=== PATIENT | male | born 1960 | race Caucasian/White ===

== ENCOUNTER 2017-09-13 10:01 | Emergency (ER) | payer MEDICARE, OTHER ==
--- NOTE | 2017-09-13 12:08 | XR ---
EXAMINATION TYPE: XR tibia fibula LT DATE OF EXAM: 09/13/2017 COMPARISON: NONE HISTORY: Pain TECHNIQUE: Two views are submitted. FINDINGS: The osseous structures are intact. The joint spaces are preserved. IMPRESSION: 1. No acute osseous abnormality.
--- NOTE | 2017-09-13 13:04 | US ---
EXAMINATION TYPE: US venous doppler duplex LE LT DATE OF EXAM: 09/13/2017 12:50 PM COMPARISON: NONE CLINICAL HISTORY: Pain left calf. SIDE PERFORMED: Left TECHNIQUE: The lower extremity deep venous system is examined utilizing real time linear array sonog shawn with graded compression, doppler sonography and color-flow sonography. VESSELS IMAGED: External Iliac Vein (EIV) Common Femoral Vein Deep Femoral Vein Greater Saphenous Vein * Femoral Vein Popliteal Vein Small Saphenous Vein * Proximal Calf Veins (* superficial vessels) Left Leg: Negative for DVT Grayscale, color doppler, spectral doppler imaging performed of the deep veins of the left lower extr emity. There is normal flow, compressibility, vascular waveforms. IMPRESSION: No ultrasound evidence for acute DVT in the left lower extremity.
--- NOTE | 2017-09-13 13:21 | ED ---
General Adult HPI - General Chief complaint: Extremity Injury, Lower Stated complaint: L leg injury Time Seen by Provider: 09/13/17 11:27 Source: patient, RN notes reviewed Mode of arrival: ambulatory Limitations: no limitations - History of Present Illness Initial comments: Chief complaint and history of present illness this is a 57-year-old male to complaint of pain to his anterior batres, left tibia. Patient reports he bumped it several weeks ago. He reports that when he tries to stand for over 4 hours starts to hurt. Also complains of pain to the medial aspect of his left calf. There is small but no bruise. Neurovascular status appears intact in the foot. Negative Homans sign first exam. X-ray of the left tib-fib was done and reviewed by radiologist his impression is no acute osseous abnormality. As read by Dr. Ceja Ultrasound venous Doppler of the left lower extremity was done and reviewed by radiologist his impression is negative for DVT. No ultrasound evidence for acute DVT in the left lower extremity. As read by Dr. freeman. The patient be placed on ibuprofen 600 mg one every 6 hours as needed for pain. Advised follow-up with family physician he doesn't have a family physician he can follow up with Dr. Burch - Related Data Previous Rx's Medication Instructions Recorded Ibuprofen [Motrin] 600 mg PO Q6HR PRN #20 tab 09/13/17 Allergies Allergy/AdvReac Type Severity Reaction Status Date / Time No Known Allergies Allergy Verified 09/13/17 12:05 Review of Systems ROS Statement: Those systems with pertinent positive or pertinent negative responses have been documented in the HPI. ROS Other: All systems not noted in ROS Statement are negative. Past Medical History Past Medical History: No Reported History History of Any Multi-Drug Resistant Organisms: None Reported Past Surgical History: No Surgical Hx Reported Past Psychological History: No Psychological Hx Reported Smoking Status: Current some day smoker Past Alcohol Use History: None Reported Past Drug Use History: None Reported General Exam Limitations: no limitations Course Vital Signs 09/13/17 10:25 Temperature 97.5 F L Pulse Rate 75 Respiratory 18 Rate Blood Pressure 139/89 O2 Sat by Pulse 99 Oximetry Disposition Clinical Impression: Contusion of left lower leg Disposition: HOME SELF-CARE Condition: Good Instructions: Leg Pain (ED) Additional Instructions: Apply ice to area discomfort. Follow-up with your family physician. We don't have a family physician follow-up with on-call emergency room Dr. Burch, if pain persists follow up with orthopedic surgeon on-call Dr. Grijalva. Take ibuprofen as directed Prescriptions: Ibuprofen [Motrin] 600 mg PO Q6HR PRN #20 tab PRN Reason: Pain Is patient prescribed a controlled substance at d/c from ED?: No Referrals: None,Stated [Primary Care Provider] - 1-2 days Kina Burch MD [REFERRING] - 1-2 days Chela Grijalva DO [Doctor of Osteopathic Medicine] - 1-2 days Time of Disposition: 13:21
[2017-09-13 13:32] VITALS: BP 157/90; PULSE 61; RESP 16; TEMP 97.8
== END 2017-09-13 13:32 | disposition home or self-care (01) ==
LOC: EC 10:01
DX: S80.12XA Contusion of left lower leg, initial encounter (principal); M79.605 Pain in left leg; F17.200 Nicotine dependence, unspecified, uncomplicated; W22.01XA Walked into wall, initial encounter
CPT/HCPCS: 99284

== ENCOUNTER 2023-12-09 12:23 | Emergency (ER) | payer MEDICARE, OTHER ==
[2023-12-09 12:33] VITALS: RESP 18
[2023-12-09] MEDS: HYDROcodone/APAP 5-325MG 1 EACH TAB PO STA (13:18)
[2023-12-09] MEDS: IBUPROFEN 800 MG TAB PO STA (13:18)
[2023-12-09] MEDS: LIDOCAINE 4% PATCH TOPICAL ONE (13:19)
--- NOTE | 2023-12-09 14:04 | XR ---
EXAMINATION TYPE: XR lumbar spine 2 or 3V DATE OF EXAM: 12/09/2023 1:35 PM CLINICAL INDICATION: Male, 63 years old with history of low back pain, right sided suspected sciatica ; [facility] COMPARISON: None TECHNIQUE: XR lumbar spine 2 or 3V - Frontal, lateral and coned in L5-S1 lateral views of the spine. FINDINGS: No evidence of any acute osseous pathology. No evidence of loss of vertebral body height i s seen. There is normal alignment of the lumbar vertebral bodies. Scattered disc space narrowing. Mul tilevel marginal osteophyte formation throughout the visualized spine. There is facet joint arthropat hy throughout the spine. Scattered at least mild neural foraminal stenosis. IMPRESSION: 1. No acute fracture. 2. 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 [facility], , 12/09/2023 2:02 PM
[2023-12-09 14:18] VITALS: BP 119/76; PULSE 52; TEMP 98.1
--- NOTE | 2023-12-09 14:20 | ED ---
General Adult HPI - General Chief complaint: Back Pain/Injury Stated complaint: Back Pain Time Seen by Provider: 12/09/23 12:53 Source: patient, RN notes reviewed, old records reviewed Mode of arrival: ambulatory Limitations: no limitations - History of Present Illness Initial comments: Is a 63-year-old male who presents emergency department complaining of back pain. Has a history of back pain however states that over the last few days he has noticed it worsening. It is in the lower lumbar spine with radiation of the right butt cheek and down the right back. No history of sciatica per patient. Denies any saddle paresthesias. Denies any urinary or bowel incontinence or retention. Denies any lower extremity paralysis. Presents for further evaluation at this time. No obvious injury. - Related Data Previous Rx's Medication Instructions Recorded Ibuprofen [Motrin] 600 mg PO Q6HR PRN #20 tab 09/13/17 Ibuprofen [Motrin] 600 mg PO Q6HR PRN #20 tab 09/13/17 Gabapentin [Neurontin] 100 mg PO TID 5 Days #15 cap 12/09/23 Lidocaine 5% Patch [Lidoderm 5% 1 patch TOPICAL DAILY PRN 14 Days 12/09/23 Patch] #14 patch Allergies Allergy/AdvReac Type Severity Reaction Status Date / Time No Known Allergies Allergy Verified 12/09/23 12:33 Review of Systems ROS Statement: Those systems with pertinent positive or pertinent negative responses have been documented in the HPI. Review of Systems: CONST: Denies fever EYES: Denies blurry vision ENT: Denies nasal congestion C/V: Denies Chest pain RESP: Denies shortness of breath GI: Denies abdominal pain : Denies dysuria SKIN: Denies rash. MSK: Endorses back pain NEURO: Denies headache ROS Other: All systems not noted in ROS Statement are negative. Past Medical History Past Medical History: No Reported History History of Any Multi-Drug Resistant Organisms: None Reported Past Surgical History: No Surgical Hx Reported Past Psychological History: No Psychological Hx Reported Smoking Status: Current some day smoker Past Alcohol Use History: None Reported Past Drug Use History: None Reported General Exam - General Exam Comments Initial Comments: General: Appears in mild acute distress. HEAD: Normal with no signs of head trauma. EYES: EOMI. ENT: Hearing grossly intact. RESPIRATORY: No respiratory distress. C/V: Regular rate and rhythm. ABD: Abdomen is nondistended. EXT: Patient has lower midline lumbar spine tenderness to palpation with radiation in the right butt cheek. There are step-offs or deformities of the sp ine appreciated. SKIN: No rashes or lesions observed on exposed skin. NEURO: Alert and oriented. Limitations: no limitations Course Vital Signs 12/09/23 12/09/23 12:30 14:17 Temperature 98 F 98.1 F Pulse Rate 62 52 L Respiratory 18 18 Rate Blood Pressure 103/68 119/76 O2 Sat by Pulse 99 97 Oximetry Medical Decision Making - Medical Decision Making Was pt. sent in by a medical professional or institution (, PA, OTHER SPORTS COACH OR INSTRUCTOR, urgent ca re, hospital, or jail...) When possible be specific @ -No Did you speak to anyone other than the patient for history (EMS, parent, family, police, friend...)? What history was obtained from this source @ -No Did you review nursing and triage notes (agree or disagree)? Why? @ -I reviewed and agree with nursing and triage notes Were old charts reviewed (outside hosp., previous admission, EMS record, old EKG, old radiological studies, urgent care reports/EKG's, jail records)? Report findings @ -No old charts were reviewed Differential Diagnosis (chest pain, altered mental status, abdominal pain women, abdominal pain men, vaginal bleeding, weakness, fever, dyspnea, syncope, headache, dizziness, GI bleed, back pain, seizure, CVA, palpatations, mental health, musculoskeletal)? @ -Differential Back Pain: Strain, zoster, cauda equina syndrome, epidural abscess, vertebral osteomyelitis, discitis, fracture, subluxation, disc herniation, DJD, spinal stenosis, dissection, AAA, pancreatitis, peptic ulcer disease, pyelonephritis, kidney stone, this is not meant to be an all-inclusive list. EKG interpreted by me (3pts min.). @ -None done X-rays interpreted by me (1pt min.). @ -X-ray reveals degenerative changes without any obvious acute fracture or injury. CT interpreted by me (1pt min.). @ -None done U/S interpreted by me (1pt. min.). @ -None done What testing was considered but not performed or refused? (CT, X-rays, U/S, labs)? Why? @ -None What meds were considered but not given or refused? Why? @ -None Did you discuss the management of the patient with other professionals (professionals i.e. , PA, OTHER SPORTS COACH OR INSTRUCTOR, lab, RT, psych nurse, home health care social worker, buyer renter, teacher, customer service officer, shoe caser)? Give summary @ -No Was smoking cessation discussed for >3mins.? @ -No Was critical care preformed (if so, how long)? @ -No Were there social determinants of health that impacted care today? How? (Homelessness, low income, unemployed, alcoholism, drug addiction, transportation, low edu. Level, literacy, decrease access to med. care, detention, rehab)? @ -No Was there de-escalation of care discussed even if they declined (Discuss DNR or withdrawal of care, Hospice)? DNR status @ -No What co-morbidities impacted this encounter? (DM, HTN, Smoking, COPD, CAD, Cancer, CVA, ARF, Chemo, Hep., AIDS, mental health diagnosis, sleep apnea, morbid obesity)? @ -None Was patient admitted / discharged? Hospital course, mention meds given and route, prescriptions, significant lab abnormalities, going to OR and other pertinent info. @ -Discussed at length with the patient based on his symptoms I am concerned for sciatica and likely some nerve impingement. We will obtain x-ray and patient will be given analgesia medications. Vital signs within acceptable limits. No red flag symptoms or concern for cauda equina syndrome at this time. Patient was in agreement this plan. X-ray shows degenerative changes but no acute injury. Reevaluation, patient is feeling improved. Patient will be discharged home at this time with follow-up with orthopedics. Patient was in agreement this plan. I will provide the patient with a prescription for pack of Tylenol 3, lidocaine patches, gabapentin. I instructed the patient to follow up with their PCP in the next 1-3 days. I provided contact information for follow up with orthopedics. I explained that the patient should return to the emergency department if they experience any worsening symptoms. Strict return precautions were discussed with the patient. The patient expressed understanding of these instructions. I answered all questions that the patient had. The patient was discharged home in good condition with their prescriptions and follow up information. Undiagnosed new problem with uncertain prognosis? @ -No Drug Therapy requiring intensive monitoring for toxicity (Heparin, Nitro, Insulin, Cardizem)? @ -No Were any procedures done? @ -No Diagnosis/symptom? @ -Lumbar strain, sciatica Acute, or Chronic, or Acute on Chronic? @ -Acute Uncomplicated (without systemic symptoms) or Complicated (systemic symptoms)? @ -Uncomplicated Side effects of treatment? @ -No Exacerbation, Progression, or Severe Exacerbation? @ -No Poses a threat to life or bodily function? How? (Chest pain, [place], [place], pneumonia, PE, COPD, DKA, ARF, appy, cholecystitis, CVA, Diverticulitis, Homicidal, Suicidal, threat to staff... and all critical care pts) @ -No Disposition Clinical Impression: Lumbar strain, Sciatica Disposition: HOME SELF-CARE Condition: Good Instructions (If sedation given, give patient instructions): Sciatica (ED), Acute Low Back Pain (ED) Prescriptions: Lidocaine 5% Patch [Lidoderm 5% Patch] 1 patch TOPICAL DAILY PRN 14 Days #14 patch PRN Reason: Pain Gabapentin [Neurontin] 100 mg PO TID 5 Days #15 cap Is patient prescribed a controlled substance at d/c from ED?: No Referrals: None,Stated [Primary Care Provider] - 1-2 days Chela Grijalva, [Doctor of Osteopathic Medicine] - 1-2 days Time of Disposition: 14:20
[2023-12-09] MEDS: ACET/COD 300 MG/30 MG STARTER PACK 6 TAB BTL PO STA (14:25)
== END 2023-12-09 15:09 | disposition home or self-care (01) ==
LOC: EC 12:23
CPT/HCPCS: 72100; 99283